=== PATIENT | male | born 1960 ===

== ENCOUNTER 2017-03-05 22:29 | Observation (INO) | payer MEDICAID ==
[2017-03-05 22:52] VITALS: TEMP 97.5
--- NOTE | 2017-03-05 22:53 | ED PDOC ---
Arrival/HPI - General Chief Complaint: Alcohol Ingestion Time Seen by Provider: 03/05/17 22:31 Historian: Patient - History of Present Illness Narrative History of Present Illness (Text): 03/05/17 22:49 Randy Amanda, a 56 year old male, presents to the emergency department because of alcohol abuse. Patient has been to emergency department before for same reason of visit. Patient has been drinking and is well to known to the system. Patient denies any other complaints at this time. Time/Duration: Prior to Arrival Symptom Course: Unchanged Activities at Onset: Rest Modifying Factors (Text): none Context: Home Associated Symptoms (Text): none Past Medical History - Provider Review Nursing Documentation Reviewed: Yes - Infectious Disease Hx of Infectious Diseases: None - Reproductive Currently : No - Cardiac Hx Hypertension: Yes - Pulmonary Hx Respiratory Disorders: No - Neurological Hx Seizures: Yes (alcohol related) - HEENT Hx HEENT Disorder: No - Renal Hx Renal Disorder: No - Endocrine/Metabolic Hx Endocrine Disorders: Yes Hx Diabetes Mellitus Type 2: Yes - Hematological/Oncological Hx Blood Disorders: No - Integumentary Hx Dermatological Disorder: No - Musculoskeletal/Rheumatological Hx Musculoskeletal Disorders: Yes Hx Falls: Yes - Gastrointestinal Hx Gastrointestinal Disorders: No - Genitourinary/Gynecological Hx Genitourinary Disorders: No - Psychiatric Hx Psychophysiologic Disorder: Yes Hx Substance Use: No Other/Comment: substance abuse- alcohol - Surgical History Hx Eye Surgery: No - Anesthesia Hx Anesthesia: No - Suicidal Assessment Feels Threatened In Home Enviroment: No Family/Social History - Physician Review Nursing Documentation Reviewed: Yes Family/Social History: No Known Family HX Smoking Status: Never Smoked Hx Alcohol Use: Yes Frequency of alcohol use: Daily Hx Substance Use: No Allergies/Home Meds Allergies/Adverse Reactions: Allergies No Known Allergies Allergy (Verified 03/04/17 12:17) Home Medications: Home Meds Medication Instructions Recorded Confirmed No Known Home Med 03/04/17 03/06/17 Review of Systems - Physician Review All systems were reviewed & negative as marked: Yes - Review of Systems Constitutional: absent: Fevers Respiratory: absent: SOB Gastrointestinal: absent: Abdominal Pain, Vomiting Physical Exam Vital Signs Reviewed: Yes Vital Signs Temp Pulse Resp BP Pulse Ox 03/06/17 05:14 89 21 134/78 91 L 03/06/17 04:26 90 18 130/81 94 L 03/06/17 03:36 82 18 138/71 95 03/06/17 03:07 100 H 15 141/73 97 03/06/17 02:32 90 20 138/73 93 L 03/06/17 01:50 87 17 133/72 93 L 03/06/17 01:34 88 131/70 94 L 03/05/17 22:44 97.5 F L 65 17 142/76 96 Temperature: Afebrile Blood Pressure: Normal Pulse: Regular Respiratory Rate: Normal Appearance: Positive for: Well-Appearing Pain Distress: None Mental Status: Positive for: Alert and Oriented X 3 - Systems Exam Head: Present: Atraumatic, Normocephalic Pupils: Present: PERRL Extroacular Muscles: Present: EOMI Conjunctiva: Present: Normal Mouth: Present: Moist Mucous Membranes Neck: Present: Normal Range of Motion Respiratory/Chest: Present: Clear to Auscultation, Good Air Exchange. No: Respiratory Distress, Accessory Muscle Use Cardiovascular: Present: Regular Rate and Rhythm, Normal S1, S2. No: Murmurs Abdomen: Present: Normal Bowel Sounds. No: Tenderness, Distention, Peritoneal Signs Upper Extremity: Present: Normal Inspection. No: Cyanosis, Edema Lower Extremity: Present: Normal Inspection. No: Edema Neurological: Present: GCS=15, CN II-XII Intact, Speech Normal Skin: Present: Warm, Dry, Normal Color. No: Rashes Psychiatric: Present: Alert, Oriented x 3, Normal Insight, Normal Concentration Medical Decision Making ED Course and Treatment: 03/05/17 23:01 Impression: 56 year old male presents for alcohol abuse. Differential Diagnosis include but are not limited to: Plan: -- Reassess and disposition Prior Visits: Notes and results from previous visits were reviewed. Patient reported to emergency department on 03/04/17 for evaluation of intoxication. Progress Notes: Patient is well to known to the system. Patient is sleeping comfortably. Patient is in no acute distress. 03/06/17 00:20 Patient is sleeping comfortably. Patient is in no acute distress. 03/06/17 03:05 Patient is sleeping comfortably. Patient is in no acute distress. 03/06/17 05:30 Patient is awake, alert, ambulatory, steady gait. Patient is stable for discharge. - Scribe Statement The provider has reviewed the documentation as recorded by the Scribe Jean Mcneil All medical record entries made by the Trever were at my direction and personally dictated by me. I have reviewed the chart and agree that the record accurately reflects my personal performance of the history, physical exam, medical decision making, and the department course for this patient. I have also personally directed, reviewed, and agree with the discharge instructions and disposition. Disposition/Present on Arrival - Present on Arrival Any Indicators Present on Arrival: No History of DVT/PE: No History of Uncontrolled Diabetes: No Urinary Catheter: No History of Decub. Ulcer: No History Surgical Site Infection Following: None - Disposition Have Diagnosis and Disposition been Completed?: Yes Diagnosis: Alcohol abuse Disposition: HOME/ ROUTINE Disposition Time: 07:00 Patient Problems: Current Active Problems Problem Status Diagnosed Blood glucose abnormal Acute Chest pain Acute Diarrhea Acute GI bleed Acute Hypokalemia Acute Hypomagnesemia Acute Hyponatremia Acute Microcytic anemia Acute Pancreatitis Acute Prophylactic measure Acute Impaired glucose tolerance Chronic Condition: STABLE
[2017-03-06 05:41] VITALS: BP 131/83; PULSE 92; RESP 18; O2SAT 94
== END 2017-03-06 05:29 | disposition home or self-care (01) ==
LOC: ED 22:29 → EROBSV 22:45
PROVIDERS: ADMIT Student in an Organized Health Care Education/Training Program; ATTEND Student in an Organized Health Care Education/Training Program
DX: F10.10 Alcohol abuse, uncomplicated (principal)
CPT/HCPCS: 99285; G0378